=== PATIENT | male | born 1950 | race Caucasian/White ===

== ENCOUNTER → 2023-02-05 | Outpatient (CLI) | payer MEDICARE, OTHER, SELFPAY ==
--- NOTE | 2023-02-05 08:05 | CT_ITS ---
PROCEDURE: CT LEFT KNEE WITHOUT CONTRAST REASON FOR EXAM: Male, 72 years old. Preoperative planning for the [employer] Robotic knee surgery. Knee pain. TECHNIQUE: Transaxial CT of the hip, knee and ankle were obtained. Coronal and sagittal reconstruction images of the knee were provided. Individualized dose optimization techniques were used for this CT. COMPARISON: None. FINDINGS: Standard protocol for the preoperative planning for the [employer] robotic knee surgery was performed. Osteopenia. Moderate arthrosis of the left hip. Moderate tricompartmental arthrosis of the knee. Mild arthrosis of the tibiotalar, subtalar and talonavicular joints. Inferior calcaneal spur. CT/Extremity Lower without Contra IMPRESSION: Preoperative [employer] Robotic knee surgical CT evaluation with findings as described above. Electronically Signed: Fortino Monae, at 9:29 EDT ,
== END | disposition home or self-care (01) ==
LOC: CT 07:52
PROVIDERS: PCP Family Medicine Geriatric Medicine; Referring Provider Orthopaedic Surgery; Visit Provider Orthopaedic Surgery
DX: M17.0 Bilateral primary osteoarthritis of knee (principal)
CPT/HCPCS: 73700

== ENCOUNTER → 2023-03-19 | Outpatient (CLI) | payer MEDICARE, OTHER, SELFPAY ==
--- NOTE | 2023-03-19 14:40 | RAD_ITS ---
STUDY: X-RAY CHEST REASON FOR EXAM: Male, 72 years old. Preoperative evaluation. No chest complaints. TECHNIQUE: COMPARISON: None. FINDINGS: Hyperinflation There is no demonstrated pleural abnormality. Cardiomegaly. Normal mediastinum and staci. Normal visualized pulmonary arteries. Aortic tortuosity with calcification. Mild thoracic spondylosis. Normal visualized ribs, clavicles, and shoulders. No abnormality of the visualized soft tissue structures of the upper abdomen. RAD/Chest PA and Lateral IMPRESSION: Cardiomegaly with hyperinflation and no acute abnormality. Electronically Signed: Fortino Monae MD at 12:41 EDT ,
[2023-03-19 15:41] LABS: Absolute Lymphocyte Count 1.27 X10^3/uL (0.83-4.51); Absolute Neutrophil Count 3.1 X10^3/uL (2.0-7.7); Basophil# 0.03 X10^3/uL; Basophil% 0.6 % (0-1); Eosinophil# 0.11 X10^3/uL; Eosinophils% 2.2 % (0-5); Hematocrit 46.4 % (40-54); Lymphocyte # 1.27 X10^3/ul (0.83-4.51); Lymphocyte % 25.1 % (19-41); Mean Corp Hgb Conc 32.3 g/dL (32-36); Mean Corpuscular Volume 86.6 fL (80-94); Mean Platelet Vol. 13.6 fl (6.2-12.0); Monocyte# 0.49 X10^3/uL; Monocyte% 9.7 % (0-10); NRBC Flagged by Analyzer 0 % (0-5); Neutrophil # 3.14 X10^3/uL (2.7-7.7); Platelet Count 138 K/mm3 (150-450); RBC Distribution Width CV 13.3 % (11.6-14.6); RBC Distribution Width SD 41.9 fl (35.1-43.9); Red Blood Count 5.36 M/mm3 (4.6-6.2); White Blood Count 5.1 K/mm3 (4.4-11.0)
[2023-03-19 16:13] LABS: Anion Gap 4 (5-15); BUN 24 mg/dL (7-18); BUN/Creat Ratio 22.6 RATIO (10-20); Calcium,Total 8.9 mg/dL (8.5-10.1); Chloride 108 mmol/L (98-107); Creatinine, Serum 1.06 mg/dL (0.70-1.30); EST Glomerular Filtration Rate 73 mL/min (>60); Est Glom Filt Rate - Afr Amer 89 mL/min (>60); Glucose 81 mg/dL (74-106); Potassium 4.4 mmol/L (3.5-5.1); Sodium Level 138 mmol/L (136-145)
== END | disposition home or self-care (01) ==
PROVIDERS: PCP Family Medicine Geriatric Medicine; Referring Provider Physician Assistant; Visit Provider Physician Assistant
DX: Z01.818 Encounter for other preprocedural examination (principal); Z01.810 Encounter for preprocedural cardiovascular examination; Z01.811 Encounter for preprocedural respiratory examination
CPT/HCPCS: 36415; 71046; 80048; 85025

== ENCOUNTER → 2023-03-26 | Outpatient (CLI) | payer MEDICARE, OTHER, SELFPAY ==
--- NOTE | 2023-03-26 | KNEE_PTH ---
PATIENT: SIGRID YOUNG LOC: [facility] U#:[id number] AGE/SX: 72/M ROOM: RE03/26/[address]: Dr. Gama Garza MD : 1950 BED: DIS: 03/26/2023 SPEC #: [id number] RECD: 03/26/23 14:52 STATUS: LEONARDO REYifan #: [id number] EMETERIO: 03/26/23 00:[address]: Gama Garza DEPT: SURGICAL PATHOLOGY RECD BY: Kristel Maravilla ENTERED: 03/27/23 09:38 SP TYPE: TOTAL KNEE OTHR DR: Dr. Gama Monroe MD [facility] Tissues: Knee, NOS Procedures: Decalcification bone/plaque Surgery Specimen Level IV HEADER OPERATION: Left total knee arthroplasty PRE-OP DIAGNOSIS: Osteoarthritis left knee with varus deformity TISSUE SUBMITTED: Left knee bone MICROSCOPIC DIAGNOSIS Bone and tissue of left knee, total knee resection: Severe degenerative joint disease. 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 AM:gilbert 03/29/2023 MICROSCOPIC DESCRIPTION Slides are reviewed. GROSS DESCRIPTION Received is one container designated bone and soft tissue left knee. The specimen consists of multiple fragments of broderick-yellow bone measuring in aggregate 17.0 x 14.0 x 2.0 cm. Also in the specimen container are multiple fragments of yellow-white soft tissue measuring in aggregate 8.0 x 5.0 x 2.0 cm. A number of bony fragments contain articular surfaces consistent with tibial plateau and femoral condyle and displaying prominent osteophyte formation, eburnation and bone erosion. [employer] Apprentice sections are submitted in two cassettes as follows: 1 - soft tissue, 2 - bone after decalcification. / AM:gilbert 03/27/2023 TC:5 [facility]: [id number], [id number]
== END | disposition home or self-care (01) ==
LOC: LABSPEC 15:02
PROVIDERS: PCP Family Medicine Geriatric Medicine; Referring Provider Orthopaedic Surgery; Visit Provider Orthopaedic Surgery
DX: M17.12 Unilateral primary osteoarthritis, left knee (principal); M21.162 Varus deformity, not elsewhere classified, left knee
CPT/HCPCS: 88305; 88311

== ENCOUNTER → 2023-09-14 | Outpatient (CLI) | payer MEDICARE, OTHER, SELFPAY | END | disposition home or self-care (01) | LOC: CT 14:42 | PROVIDERS: PCP Family Medicine Geriatric Medicine; Referring Provider Orthopaedic Surgery; Visit Provider Orthopaedic Surgery | DX: Z96.652 Presence of left artificial knee joint (principal) ==

== ENCOUNTER → 2023-10-23 | Outpatient (CLI) | payer MEDICARE, OTHER, SELFPAY ==
--- NOTE | 2023-10-23 12:50 | CT_ITS ---
CT RIGHT LOWER EXTREMITY WITH 3-D IMAGING CLINICAL INDICATION: PRE OP WASC. Preoperative MAKOPLASTY TECHNIQUE: Axial CT images of the RIGHT lower extremity was performed without IV contrast material. Coronal and sagittal reformats were provided. RADIATION DOSAGE (If Supplied By Facility): CTDIvol = ( 18.76 ) mGy, DLP = ( 1082.06 ) mGycm COMPARISON: No relevant prior comparison study available FINDINGS: Bones: Imaging of the right hip was obtained. Mild to moderate degree of joint space narrowing. There is evidence of a degenerative spur formation along the superior lateral aspect of the right femoral head. Imaging of the right knee joint was obtained. Moderate degree of joint space narrowing involving the medial compartment of the knee joint with degenerative spur formation along the medial femoral condyle. Imaging of the right ankle was obtained. No significant abnormality is seen. Soft Tissues: Small knee joint effusion. The superficial soft tissues are unremarkable without evidence of edema, hematoma, or foreign body. CT/Extremity Lower without Contra IMPRESSION: Moderate degree of joint space narrowing involving the right hip joint as well as the medial compartment of the right knee joint as described. Small knee joint effusion. Electronically Signed: Fabricio Morrison MD at 13:33 EST ,
--- OUTSIDE RECORDS SUMMARY | 2023-10-23 12:59 | XMS RPT_ITS | CCD ---
Author Name Unknown Address [address] [facility] [address] [place] [address] Organization [facility] Care Team Providers Care Jar Capper Name Role Phone PA VALLEJO Unavailable Unavailable RADHA BRIAN Unavailable Unavailable JOSE MARIA MEYER Unavailable Unavailable JOSE MARIA MEYER Unavailable Unavailable *SELF, REFERRED Unavailable Unavailable UNKNOWN, PCP Unavailable Unavailable Radha Brian Primary Care Provider Radha Brian Primary Care Provider RADHA BRIAN MD Primary Care Physician SNEHAL HERNANDEZ., DR. GARCIA Primary Care Unavailable RADHA MA MD Referring Unavailable RADHA MA MD Attending Unavailable Radha Brian MD Primary Care Provider Radha Brian MD Primary Care Provider RADHA BRIAN Primary Care Unavailable DUNG PHILLIPS Attending UnavailLAUREEN Mendez Attending Unavailable LAUREEN CHAPMAN Referring Unavailable RADHA BRIAN Primary Care Unavailable LISSA OLEA Attending Unavailable RADHA BRIAN Primary Care Unavailable LAUREEN CHAPMAN Attending Unavailable RADHA BRIAN Primary Care Unavailable Medications Current Medications Medication Drug Class(es) Dates Sig (Normalized) Sig (Original) acetaminophen 500 mg oral tablet (3 sources) acetaminophen (Tylenol Extra Strength) 500 MG tablet 2 tab Q 8 hours 0 Active apixaban 5 mg oral tablet (11 sources) Factor Xa Inhibitor Start: 11-07-2022 End: 08-08-2023 take 1 tablet by mouth twice daily Eliquis 5 MG tablet Take 1 tablet (5 mg) by mouth 2 times daily. 180 tablet 3 08/08/2023 Active Completed/Discontinued Medications Medication Drug Class(es) Dates Sig (Normalized) Sig (Original) 10 ml lidocaine hydrochloride 10 mg/ml injection (1 source) Antiarrhythmic, Amide Local Anesthetic Start: 05-03-2020 End: 05-03-2020 lidocaine PF 1 % injection 5 mL Problems Active Problems Problem Classification Problem Date Documented Date Episodic/Chronic Cardiac dysrhythmias (19 sources) Paroxysmal atrial fibrillation; Translations: [Paroxysmal atrial fibrillation] Onset: 01-02-2020 01-02-2020 Chronic Coagulation and hemorrhagic disorders (7 sources) Thrombocytopenic disorder; Translations: [Thrombocytopenia, unspecified] Onset: 04-05-2017 07-23-2022 Chronic Essential hypertension (5 sources) Essential hypertension; Translations: [Essential (primary) hypertension] Onset: 02-05-2023 Chronic Heart valve disorders (5 sources) Aortic stenosis, non-rheumatic ; Translations: [Nonrheumatic aortic (valve) stenosis] Onset: 08-18-2023 08-08-2023 Chronic Osteoarthritis (1 source) Osteoarthritis of knee; Translations: [Bilateral primary osteoarthritis of knee] Chronic Other lower respiratory disease (5 sources) Dyspnea; Translations: [Shortness of breath] Onset: 08-18-2023 08-08-2023 Episodic Other lower respiratory disease (1 source) Shortness of breath; Translations: [Shortness of breath] Onset: 08-18-2023 Episodic Unclassified (1 source) Longstanding persistent atrial fibrillation; Translations: [Longstanding persistent atrial fibrillation (HCC)] Onset: 03-28-2023 Past or Other Problems Problem Classification Problem Date Documented Da te Episodic/Chronic Open wounds of extremities (1 source) Laceration of index finger; Translations: [Laceration of right index finger without foreign body without damage to nail, initial encounter] Episodic Unclassified (4 sources) Encounter for screening for malignant neoplasm of colon; Translations: [Platelet count below reference range] Onset: 04-05-2017 04-05-2017 Episodic Results Test Name Value Interpretation Reference Range Facil ity Vital Signs Date Time Vital Sign Value Performing Clinician Duran sanchez 08-18-2023 11:06-0500 Body height 175.3 cm Laureen Chapman PA-C Work Phone: [facility] 08-18-2023 11:06-0500 Body mass index (BMI) [Ratio] 24.96 kg/m2 Laureen Chapman PA-C Work Phone: [facility] 08-18-2023 11:06-0500 Body weight 76.66 kg Laureen Chapman PA-C Work Phone: [facility] 08-08-2023 13:37-0400 Body height 176.5 cm Laureen Chapman PA-C Work Phone: [facility] 08-08-2023 13:37-0400 Body mass index (BMI) [Ratio] 24.7 kg/m2 Laureen Chapman PA-C Work Phone: [facility] 08-08-2023 13:37-0400 Body weight 76.97 kg Laureen Chapman PA-C Work Phone: [facility] 08-08-2023 13:37-0400 Diastolic blood pressure 50 mm[Hg] Laureen Chapman PA-C Work Phone: [facility] 08-08-2023 13:37-0400 Heart rate 97 /min Laureen Chapman PA-C Work Phone: [facility] 08-08-2023 13:37-0400 SaO2% (BldA) [Mass fraction] 97 % Laureen Chapman PA-C Work Phone: [facility] 08-08-2023 13:37-0400 Systolic blood pressure 102 mm[Hg] Laureen Chapman PA-C Work Phone: [facility] 02-05-2023 15:40-0400 Body height 180.3 cm Lissa Olea MD Work Phone: [facility] 02-05-2023 15:40-0400 Body mass index (BMI) [Ratio] 23.51 kg/m2 Lissa Olea MD Work Phone: [facility] 02-05-2023 15:40-0400 Body weight 76.48 kg Lissa Olea MD Work Phone: [facility] 02-05-2023 15:40-0400 Diastolic blood pressure 68 mm[Hg] Lissa Olea MD Work Phone: [facility] 02-05-2023 15:40-0400 Heart rate 46 /min Lissa Olea MD Work Phone: [facility] 02-05-2023 15:40-0400 SaO2% (BldA) [Mass fraction] 96 % Lissa Olea MD Work Phone: [facility] 02-05-2023 15:40-0400 Systolic blood pressure 128 mm[Hg] Lissa Olea MD Work Phone: [facility] 05-03-2020 16:05-0400 BP Diastolic 72 mm[Hg] [place], [place] 05-03-2020 16:05-0400 BP Systolic 156 mm[Hg] [place] 05-03-2020 16:05-0400 Pulse (Heart Rate) 62 /min [place], [place] 05-03-2020 16:05-0400 Pulse Oximetry 100 % [place] 05-03-2020 16:05-0400 Respiratory Rate 16 /min [place] 05-03-2020 14:50-0400 BMI (Body Mass Index) 23.71 kg/m2 [place], [place] 05-03-2020 14:50-0400 Body Temperature 97.2 [degF] [place], [place] 05-03-2020 14:50-0400 Body weight 77.11 kg [place] Encounters Encounter Date Encounter Type Care Provider Facility Start: 08-18-2023 End: 08-19-2023 ambulatory LAUREEN MG [facility] Start: 08-18-2023 End: 08-18-2023 Subsequent hospital visit by physician Laureen Chapman PA-C Work Phone: [facility] Non-Invasive Cardiology Procedures Date Procedure Procedure Detail Performing Clinician Start: 08-18-2023 Echo tthrc r-t 2d w/wom-mode compl spec&colr d Laureen Chapman PA-C Work Phone: Start: 08-08-2023 Ecg routine ecg w/le ast 12 lds trcg only w/o i&r Lissa Olea MD Work Phone: Start: 02-05-2023 Ecg routine ecg w/le ast 12 lds w/i&r Lissa Olea MD Work Phone: Start: 10-19-2020 Echo tthrc r-t 2d w/wom-mode compl spec&colr d Laureen Chapman Work Phone: Start: 05-03-2020 LACERATION REPAIR Belen Jesus Stone Work Phone: Start: 02-02-2020 Lipid 1996 panel - S noreen or Plasma Lissa Olea MD Work Phone: Start: 05-22-2019 Echo tthrc r-t 2d w/wom-mode compl spec&colr d Laureen Chapman Work Phone: Plan of Treatment Date Care Activity Detail Author Start: 11-02-2026 DTaP/Tdap/Td vaccine (2 - Td) DTaP/Tdap/Td vaccine (2 - Td) [place] Start: 11-02-2026 DTaP/Tdap/Td Vaccines (2 - Td or Tdap) DTaP/Tdap/Td Vaccines (2 - Td or Tdap) [facility] Start: 02-01-2025 Lipid panel Lipid Panel [facility] Start: 08-18-2024 Echocardiography Echocardiogram [facility] Start: 08-08-2024 Creatinine measurement Creatinine Level [facility] Start: 08-08-2024 Potassium measurement Potassium Level [facility] Start: 08-18-2023 End: 08-18-2023 Patient encounter procedure 08/18/2023 10:00 AM EST Appointment [facility] Non-Invasive Cardiology [address] [place] [phone] [facility] Non-Invasive Cardiology Start: 08-08-2023 End: 08-08-2024 Basic metabolic 1998 panel - Serum or Plasma Basic metabolic panel Lab Routine Paroxysmal atrial fibrillation (CMS/HCC) (HCC) Nonrheumatic aortic valve stenosis Shortness of breath Expected: 08/08/2023 (Approximate), Expires: 08/08/2024 [facility] Payers Date Payer Category Payer Unknown [employer] [place] [id number] 2021-Present [address] [place] [address] Supplement [id number] 2018 Unknown [employer] M [employer] [address] xxxxxxxxxxxx 2018-Present [phone] [address] [place] [address] xxxxxxxxxxxx [id number] 2018 Unknown [id number] 2018 Unknown [employer] [address] [id number] 2018-Present [phone] [address] [place] [address] [id number] 2017 Medicare MEDICARE MEDICAR E PART A AND B xxxxxxxxxxx 2017-Present [phone] [place] [address] xxxxxxxxxxx [id number] 2017 Medicare MEDICARE MEDICAR E PART A AND B [id number] 2017-Present [phone] [place] [address] [id number] 2017 Medicare [id number] 2017 Medicare MEDICARE MEDICAR E PART A AND B [id number] 2017-Present [address] [place] [address] Medicare [id number] 1950 Unknown [id number] Unknown [id number] Social History Date Type Detail Facility Start: 05-05-2019 End: 05-03-2020 Tobacco smoking status NHIS Never smoker [facility] Start: 05-05-2019 End: 08-08-2023 [facility] [place] [place] Start: 05-05-2019 Alcohol Comment Thur, some Fri and Sun, 6 beers each time min. [facility] [employer] [place], [place] Sex Assigned At Not on file [place], [place] Start: 05-03-2020 Tobacco use and exposure [facility] used [facility] [place] [place] Start: 05-03-2020 End: 09-26-2022 Alcohol intake Current drinker of alcohol (finding) [facility] [place] Start: 05-27-2019 Alcohol Comment 3 beers a day on thur, fri, sun [place], [place] Exposure to SARS-CoV -2 (event) Not sure [place] Tobacco smoking status No Smokin g Status Entered [facility] Start: 1950 Sex Assigned At Male A [facility] Start: 09-26-2022 End: 08-08-2023 History of Social function [facility] Start: 02-04-2023 Gender identity Identifies as male gender (finding) [facility] Start: 08-08-2023 Alcohol intake Ex-drinker (finding) [facility] Functional Status Date Assessment Result Facility 03-30-2022 Functional Status Objective: Cardiovascular screen: BP: 130/78 HR: 54 BPM O2 sat: 97% Gait: genu varum noted bilaterally Observation in standing: Genu Varum Joint Mobility: min loss extension Effusion: no palpable or observed [facility] 02-05-2023 to 08-08-2023 Laureen Chapman PA-C - 08/08/2023 1:30 PM EDTPatient InstructionsTelephone Encounter - Yari Craig - 03/16/2023 12:07 PM EDTTelephone Encounter - Yari Craig - 02/06/2023 8:30 AM EDT Note Date & Type Note Facility 08-08-2023 History of Presen t illness Narrative [facility] Office Note DATE of SERVICE: 08/08/23 TIME of SERVICE: 2:12 PM Chief Complaint: Chief Complaint Patient presents with 6 Month Follow-up History of Present Illness: Kurt Matthews is a 72 y.o. male with a history of hypertension, thrombocytopenia, paroxysmal atrial fibrillation, aortic stenosis and bradycardia who presents to the office today for cardiac reassessment. Currently the patient reports since he was last evaluated in our office he underwent a knee replacement. He reports postoperatively he developed atrial fibrillation with rapid ventricular response. He states normally his heart rate is not as fast if he has paroxysms of atrial fibrillation. He subsequently was in the emergency room at [facility] 03/2023. He spontaneously converted back to a sinus mechanism and was restarted on his OAC/Eliquis post knee surgery. He was then discharged home. The patient reports on average she experiences maybe 1 episode a month. They typically last a few hours however he admits they have been lasting longer lately. He states his episodes are now lasting approximately 9 hours. He states his current episode is the longest episode he has had. It started at 6:30 PM last night. This is his first episode in the last month. He states however he is tolerating it well aside from the initial palpitations. Specifically he denies chest pain, shortness of breath with the atrial fibrillation, near-syncope or syncope. He states he has not missed any doses of his Eliquis in the last 4 weeks and denies any bleeding problems. He is not drinking alcohol or taking [id number] supplements. He drinks an occasional soda and ice tea but no daily caffeine intake. Past Medical History: Past Medical History: Diagnosis Date Hypertension Paroxysmal atrial fibrillation (HCC) Thrombocytopenia (HCC) Past Surgical History Past Surgical History: Procedure Laterality Date COLONOSCOPY 01/17/2005 TONSILLECTOMY (HISTORICAL) TYMPANOSTOMY TUBE PLACEMENT FamilyHistory Family History Problem Relation Name Age of Onset No Known Problems Sister No Known Problems Brother Cancer Father unknown No Known Problems Son No Known Problems Brother No Known Problems Daughter Cancer Mother unknown Social History Social History Tobacco Use Smoking status: Never Smokeless tobacco: Never Substance Use Topics Alcohol use: Not Currently Drug use: No Comment: caffeine use: decaf coffe and 1 can of soda a day, 1 glass of sweet tea a week Medications: Current Outpatient Medications: acetaminophen (Tylenol Extra Strength) 500 MG tablet, 2 tab Q 8 hours, Disp: , Rfl: lisinopril 10 MG tablet, Take 10 mg by mouth 2 times daily., Disp: , Rfl: metoprolol tartrate (Lopressor) 50 MG tablet, TAKE 1/2 TABLET BY MOUTH TWICE A DAY ORALLY TWICE A DAY 90 DAYS, Disp: , Rfl: Eliquis 5 MG tablet, Take 1 tablet (5 mg) by mouth 2 times daily., Disp: 180 tablet, Rfl: 3 Review of Systems: Review of Systems Constitutional: Negative for chills and fever. Respiratory: Positive for shortness of breath. Negative for cough. Cardiovascular: Positive for palpitations. Negative for chest pain and leg swelling. Gastrointestinal: Negative for abdominal pain, blood in stool and vomiting. Genitourinary: Negative for hematuria. Neurological: Negative for dizziness and syncope. Physical Examination: Vitals: Vitals: 08/08/23 1337 BP: 102/50 BP Location: Left arm Patient Position: Sitting BP Cuff Size: Adult Pulse: 97 SpO2: 97% Weight: 169 lb 11.2 oz (77 kg) Height: 5' 9.5 (1.765 m) Body mass index is 24.7 kg/m . Physical Exam Constitutional: Appearance: Normal appearance. HENT: Head: Normocephalic. Eyes: General: No scleral icterus. Right eye: No discharge. Left eye: No discharge. Cardiovascular: Rate and Rhythm: Normal rate. Rhythm irregularly irregular. Pulses: Normal pulses. Heart sounds: Murmur heard. Systolic murmur is present with a grade of 2/6. Pulmonary: Effort: Pulmonary effort is normal. Breath sounds: Normal breath sounds. Abdominal: General: Abdomen is flat. Palpations: Abdomen is soft. Musculoskeletal: General: Normal range of motion. Cervical back: Normal range of motion. Skin: General: Skin is warm and dry. Capillary Refill: Capillary refill takes less than 2 seconds. Neurological: Mental Status: He is alert and oriented to person, place, and time. Psychiatric: Mood and Affect: Mood normal. Laboratory Tests: No results found for: WBC , HGB , HCT , MCV , PLT Lab Results Component Value Date GLUCOSE 102 (H) 02/02/2020 CALCIUM 9.3 02/02/2020 NA 141 02/02/2020 K 4.6 02/02/2020 CO2 26 02/02/2020 CL 105 02/02/2020 BUN 26 (H) 02/02/2020 CREATININE 1.02 02/02/2020 No results found for: HGBA1C Lab Results Component Value Date CHOL 118 02/02/2020 Lab Results Component Value Date TRIG 135 02/02/2020 Lab Results Component Value Date HDL 40 02/02/2020 No results found for: LDLCALC No results found for: VLDL Lab Results Component Value Date CHOLHDLRATIO 3 02/02/2020 Cardiac Tests: ECG: EKG in the office today shows atrial fibrillation with a heart rate of 97 bpm Last Echo 10/19/20: SUMMARY: 1. Study data: Atrial fibrillation rates 80-110 beats a minute 2. Left ventricle: Systolic function is normal by visual assessment. The estimated ejection fraction is 60%. There are no regional wall motion abnormalities. 3. Right ventricle: The cavity size is normal. Systolic function is normal. Right ventricular systolic pressure is within the normal range. 4. Aortic valve: Probably trileaflet; moderately calcified leaflets. There is moderate stenosis. There is mild, 1+ regurgitation. The mean systolic gradient is 11 mm Hg. The peak systolic gradient is 22 mm Hg. Dimensionless index: 0.45. The valve area by the velocity-time integral method is 1.4 cm^2. Assessment and Plan: Paroxysmal, nonvalvular atrial fibrillation-the patient's episodes have been increasing in length. He is currently in atrial fibrillation which he reports started at 6:30 PM last night. He is appropriately anticoagulated with Eliquis and reports he has not missed any doses in the last 4 weeks. He is to obtain a CBC, BMP, magnesium and TSH level today. He is to call the office in the morning if he has not spontaneously converted back to a sinus mechanism on his own. If he remains in atrial fibrillation, will plan on proceeding with cardioversion. He is to continue on his current rate control with metoprolol. Aortic stenosis-moderate per most recent echocardiogram 2020-the patient does report shortness of breath with heavy exertion and has had increasing episodes of atrial fibrillation. He subsequently is to undergo a follow-up echocardiogram. Hypertension-controlled. Dyslipidemia-history of intolerance to statin therapy. History of bradycardia-stable. -Further recommendations pending upcoming cardiac testing. In the absence of further cardiac complaints and/or abnormalities on the patient's upcoming cardiac testing, the patient is return for cardiac reassessment in 3 months. documented in this encounter [facility] 08-08-2023 Instructions Laureen Chapman PA-C - 08/08/2023 1:30 PM EDT -don't eat or drink after midnight and call Laureen in the morning at [phone] at 8 am to let us know if you are back in rhythm -blood test today -echocardiogram documented in this encounter [facility] 03-16-2023 Telephone encount er Note Fadia pt seen today at [facility] ED for AF RVR. Converted spontaneously. Please schedule follow up with myself or Laureen. Thanks Lissa Olea MD [facility] 03/28/23 4:01 PM Per call from Juani at [facility], I faxed last office note and ekg to [phone] [facility] 03-16-2023 Miscellaneous Notes Formattin g of this note might be different from the original. Per call from Juani at [facility], I faxed last office note and ekg to [phone] documented in this encounter [facility] 03-16-2023 Miscellaneous Notes Formattin g of this note might be different from the original. Fadia pt seen today at [facility] ED for AF RVR. Converted spontaneously. Please schedule follow up with myself or Laureen. Thanks Lissa Olea MD [facility] 03/28/23 4:01 PM Per call from Juani at [facility], I faxed last office note and ekg to [phone] documented in this encounter [facility] 02-06-2023 Telephone encount er Note Per Dr Olea, I faxed yesterdays note to [facility] for left total knee surgery 03-19-[address] Radha Ma fax [phone] [facility] 02-06-2023 Miscellaneous Notes Formattin g of this note might be different from the original. Per Dr Olea, I faxed yesterdays note to [facility] for left total knee surgery 03-19-[address] Radha Ma fax [phone] documented in this encounter [facility] 02-05-2023 History of Presen t illness Narrative [facility] Office Note DATE of SERVICE: 02/05/23 TIME of SERVICE: 3:45 PM Chief Complaint: Chief Complaint Patient presents with Cardiac Clearance For L TKA History of Present Illness: Kurt Matthews is a 72 y.o. male with a known history of hypertension, thrombocytopenia, paroxysmal atrial fibrillation who presents to the office today for cardiac follow-up and evaluation. He has had two brief episodes of AF since his last visit which have both spontaneously converted to NSR. He is in need of Bilateral TKA. He has no sx of cp palpitation, and describes sob w high levels of effort or exertion. Past Medical History: Past Medical History: Diagnosis Date Hypertension Paroxysmal atrial fibrillation (CMS/HCC) (HCC) Thrombocytopenia (HCC) Past Surgical History Past Surgical History: Procedure Laterality Date COLONOSCOPY 01/17/2005 TONSILLECTOMY (HISTORICAL) TYMPANOSTOMY TUBE PLACEMENT FamilyHistory Family History Problem Relation Name Age of Onset No Known Problems Sister No Known Problems Brother Cancer Father unknown No Known Problems Son No Known Problems Brother No Known Problems Daughter Cancer Mother unknown Social History Social History Tobacco Use Smoking status: Never Smokeless tobacco: Never Substance Use Topics Alcohol use: Yes Drug use: No Medications: Current Outpatient Medications: Eliquis 5 MG tablet, Take 5 mg by mouth 2 times daily., Disp: , Rfl: lisinopril 10 MG tablet, Take 10 mg by mouth 2 times daily., Disp: , Rfl: metoprolol tartrate (Lopressor) 50 MG tablet, TAKE 1/2 TABLET BY MOUTH TWICE A DAY ORALLY TWICE A DAY 90 DAYS, Disp: , Rfl: Review of Systems: Review of Systems Constitutional: Negative for diaphoresis. HENT: Negative for nosebleeds. Respiratory: Negative for cough, shortness of breath (with over exertion) and wheezing. Cardiovascular: Positive for palpitations. Negative for chest pain and leg swelling. Gastrointestinal: Negative for abdominal pain, blood in stool, nausea and vomiting. Genitourinary: Negative for hematuria. Musculoskeletal: Arthralgias: B knee. Neurological: Negative for dizziness, syncope and light-headedness. Hematological: Does not bruise/bleed easily. Psychiatric/Behavioral: Negative for dysphoric mood and suicidal ideas. Physical Examination: Vitals: Vitals: 02/05/23 1540 BP: 128/68 BP Location: Right arm Patient Position: Sitting BP Cuff Size: Large adult Pulse: (!) 46 SpO2: 96% Weight: 168 lb 9.6 oz (76.5 kg) Height: 5' 11 (1.803 m) Body mass index is 23.51 kg/m . Physical Exam Constitutional: General: He is not in acute distress. Appearance: He is not diaphoretic. HENT: Head: Normocephalic. Nose: Nose normal. Mouth/Throat: Mouth: Mucous membranes are moist. Pharynx: No oropharyngeal exudate. Eyes: General: No scleral icterus. Right eye: No discharge. Left eye: No discharge. Neck: Thyroid: No thyromegaly. Vascular: No carotid bruit or JVD. Cardiovascular: Rate and Rhythm: Normal rate and regular rhythm. Pulses: Normal pulses. Heart sounds: Murmur (grade III murmur) heard. Pulmonary: Effort: Pulmonary effort is normal. Breath sounds: Normal breath sounds. Abdominal: General: Bowel sounds are normal. There is no distension. Palpations: There is no hepatomegaly. Tenderness: There is no abdominal tenderness. Musculoskeletal: General: Normal range of motion. Cervical back: Normal range of motion. Right lower leg: No edema. Left lower leg: No edema. Skin: General: Skin is warm and dry. Neurological: Mental Status: He is oriented to person, place, and time. Psychiatric: Mood and Affect: Mood normal. Behavior: Behavior normal. Laboratory Tests: Lab Results Component Value Date GLUCOSE 102 (H) 02/02/2020 CALCIUM 9.3 02/02/2020 NA 141 02/02/2020 K 4.6 02/02/2020 CO2 26 02/02/2020 CL 105 02/02/2020 BUN 26 (H) 02/02/2020 CREATININE 1.02 02/02/2020 Lab Results Component Value Date CHOL 118 02/02/2020 Lab Results Component Value Date TRIG 135 02/02/2020 Lab Results Component Value Date HDL 40 02/02/2020 Lab Results Component Value Date CHOLHDLRATIO 3 02/02/2020 Cardiac Tests: ECG: NSR normal ECG ECHO: 10/19/20 1. Study data: Atrial fibrillation rates 80-110 beats a minute 2. Left ventricle: Systolic function is normal by visual assessment. The estimated ejection fraction is 60%. There are no regional wall motion abnormalities. 3. Right ventricle: The cavity size is normal. Systolic function is normal. Right ventricular systolic pressure is within the normal range. 4. Aortic valve: Probably trileaflet; moderately calcified leaflets. There is moderate stenosis. There is mild, 1+ regurgitation. The mean systolic gradient is 11 mm Hg. The peak systolic gradient is 22 mm Hg. Dimensionless index: 0.45. The valve area by the velocity-time integral method is 1.4 cm^2. Assessment and Plan: Bradycardia- improved on the lower dose of beta cindy therapy. The patient is asymptomatic and therefore was advised to continue his present dosing of beta cindy therapy. Paroxysmal atrial fibrillation-Will continue rate control and anticoagulation. Continue current Rx Aortic Stenosis- mild per recent echocardiogram 2020 with an ejection fraction of 60%-the patient is currently asymptomatic. He was advised we would recommend obtaining a follow-up echocardiogram in one year. Hypertension-controlled following the recent adjustment of his medication. Dyslipidemia. Pt statin intolerant Pre-op evaluation. The pt appears to be at low risk of cardiovascular morbidity or mortality from the planned TKA. I have advised that he hold Eliquis 48 hours prior to OR (or longer if the surgeon directs) and resume at the direction of the surgeon. documented in this encounter [facility] 02-05-2023 Instructions Lissa Olea MD - 02/05/2023 3:15 PM EDT Please call our office at [phone] if you have questions or if you are having worsening symptoms of chest pain, pressure, or heaviness, aching, tightness or discomfort, worsening shortness of breath, palpitations, lightheadedness, or loss of consciousness. Please seek emergency care or call 911 if symptoms are severe. Continue all other medications as prescribed. If you need medication refills, please call our office during business hours (M-F 8a-4:30p) documented in this encounter [facility] Evaluation + Plan note No data available for this section [facility] Diagnosis Paroxysmal atrial fibrillation (HCC)- Primary Atrial fibrillation Nonrheumatic aortic valve stenosis Shortness of breath Essential hypertension Unspecified essential hypertension [facility] Diagnosis Paroxysmal atrial fibrillation (HCC) Atrial fibrillation Nonrheumatic aortic valve stenosis Shortness of breath [facility] No data available for this section [facility] Progress note No data available for this section [facility] Summary Purpose Family History No Family History Records FoundNo Family History Records FoundNo Family History Records FoundNo Family History Records FoundNo Family History Records FoundNo Family History Records FoundNo Family History Records Found Advance Directives No Advanced Directives Records FoundDocuments on File Type Date Recorded Patient [place] Expl anation Advance Directives and Living Will Power of Tool Design Engineer Documents on File Type Date Recorded Patient [place] Expl anation ACP-Advance Directive ACP-Power of Tool Design Engineer Documents on File Type Date Recorded Patient [place] Expl anation Advance Directives and Living Will Power of Tool Design Engineer Reason for Referral Status Reason Specialty Diagnoses / Procedures Referre d By Contact Referred To Contact Closed Cardiology Diagnoses Essential hypertension Paroxysmal atrial fibrillation (HCC) Shortness of breath Procedures ECHO Complete 2D W Doppler W Color Laureen Chapman PA-C [address] [place] [address] Specialty Diagnoses / Procedures Referred By Contac t Referred To Contact Cardiology Diagnoses Paroxysmal atrial fibrillation (HCC) Nonrheumatic aortic valve stenosis Shortness of breath Procedures Transthoracic echocardiogram (TTE) complete with contrast, bubble, strain, and 3D PRN IN ECHO TTHRC R-T 2D W/WOM-MODE COMPL SPEC&COLR D IN TTE W OR WO FOL WCON,DOPPLER Laureen Chapman PA-C [address] [place] [address] Referral ID Status Reason Start Date Expiration Date V isits Requested Visits Authorized [id number] Pending Review 08/08/2023 08/07/2024 1 1 Referral ID Status Reason Start Date Expiration Date Visits Re quested Visits Authorized [id number] Closed 08/08/2023 08/07/2024 1 1 Assessments Diagnosis Essential hypertension Unspecified essential hypertension Paroxysmal atrial fibrillation (HCC) Atrial fibrillation Shortness of breath Diagnosis Laceration of right index finger without foreign body without damage to nail, initial encounter Discharge Instructions * Attachments The following attachments cannot be sent through Care Everywhere. * Lacerations: Stitches ([place]) documented in this encounter Additional Source Comments (unrecognized sect ion and content) No Status Records FoundNo Status Records FoundNo Status Records FoundNo Status Records FoundNo Status Records FoundNo Status Records FoundNo Status Records Found INFORMATION SOURCE (unrecogn ized section and content) DATE CREATED AUTHOR AUTHOR'S ORGANIZ ATION 04/05/2018 [facility] DATE CREATED AUTHOR AUTHOR'S ORGANIZ ATION 05/28/2019 [facility] DATE CREATED AUTHOR AUTHOR'S ORGANIZ ATION 10/20/2020 [facility] DATE CREATED AUTHOR AUTHOR'S ORGANIZ ATION 08/31/2022 [facility] ([place] DATE CREATED AUTHOR AUTHOR'S ORGANIZ ATION 04/12/2023 [facility] DATE CREATED AUTHOR AUTHOR'S ORGANIZ ATION 08/19/2023 [facility] Reason for Visit (unrecogniz ed section and content) Reason Comments Cardiac Clearance For L TKA Reason Onset Date Comments Cardiac Clearance 02/06/2023 Reason Onset Date Comments OTHER 03/16/2023 Reason Comments 6 Month Follow-up Specialty Diagnoses / Procedures Referred By Contac t Referred To Contact Cardiology Diagnoses Paroxysmal atrial fibrillation (HCC) Nonrheumatic aortic valve stenosis Shortness of breath Procedures Transthoracic echocardiogram (TTE) complete with contrast, bubble, strain, and 3D PRN IN ECHO TTHRC R-T 2D W/WOM-MODE COMPL SPEC&COLR D IN TTE W OR WO FOL WCON,DOPPLER Laureen Chapman, PATomasC [address] [place] [address] Referral ID Status Reason Start Date Expiration Date Visits Re quested Visits Authorized [id number] Closed 08/08/2023 08/07/2024 1 1 Care Team (unrecognized sect ion and content) Care Team Personnel Name: RADHA BRIAN MD Member Role: Primary Care Physician Address: Address: [address] [place] [phone] Care Teams (unrecognized sec tion and content) Jar Capper Relationship Specialty Start Date End Date Radha Brian MD [address] [place] [phone] PCP - General 03/08/19 Jar Capper Relationship Specialty Start Date End Date Radha Brian MD [address] [place] [phone] PCP - General 03/08/19 Jar Capper Relationship Specialty Start Date End Date Radha Brian MD [address] [place] [phone] PCP - General 03/08/19 Jar Capper Relationship Specialty Start Date End Date Radha Brian MD [address] [place] [phone] PCP - General 03/08/19 FOR RECORDS PERTAINING TO PATIENTS WHO ARE OR HAVE BEEN ENROLLED IN A CHEMICAL DEPENDENCY/SUBSTANCEABUSE PROGRAM, SOME INFORMATION MAY BE OMITTED. This clinical summary was aggregated from multiple sources. Caution should be exercised in using it in the provision of clinical care. This summary normalizes information from multiple sources, and as a consequence, information in this document may materially change the coding, format and clinical context of patient data. In addition, data may be omitted in some cases. CLINICAL DECISIONS SHOULD BE BASED ON THE PRIMARY CLINICAL RECORDS. [facility] [employer] provides no warranty or guarantee of the accuracy or completeness of information in this document.
== END | disposition home or self-care (01) ==
LOC: CT 12:39
PROVIDERS: PCP Family Medicine Geriatric Medicine; Referring Provider Orthopaedic Surgery; Visit Provider Orthopaedic Surgery
DX: Z96.652 Presence of left artificial knee joint (principal)
CPT/HCPCS: 73700

== ENCOUNTER → 2023-12-04 | Outpatient (CLI) | payer MEDICARE, OTHER, SELFPAY ==
--- NOTE | 2023-12-04 11:41 | EKG12_ITS ---
Test Reason : PREOP Blood Pressure : / mmHG Vent. Rate : 142 BPM Atrial Rate : 357 BPM P-R Int : 000 ms QRS Dur : 096 ms QT Int : 322 ms P-R-T Axes : 000 015 080 degrees QTc Int : 495 ms Atrial fibrillation Marked ST abnormality, possible inferior subendocardial injury Abnormal ECG Confirmed by CURT HERNANDEZ, GREGORIA ([id number]), photo editor JOSE M GREGORY ([id number]) on 12/10/2023 10:03:58 AM Referred By: Gama Garza Confirmed By:ANDRA ELIAS MD
== END | disposition home or self-care (01) ==
LOC: PSN 11:40
PROVIDERS: PCP Family Medicine Geriatric Medicine; Referring Provider Orthopaedic Surgery; Visit Provider Orthopaedic Surgery
DX: Z01.818 Encounter for other preprocedural examination (principal); I48.91 Unspecified atrial fibrillation; Z01.810 Encounter for preprocedural cardiovascular examination; I10 Essential (primary) hypertension; M17.11 Unilateral primary osteoarthritis, right knee; Z79.01 Long term (current) use of anticoagulants; Z79.899 Other long term (current) drug therapy
CPT/HCPCS: 93005

== ENCOUNTER → 2023-12-11 | Outpatient (CLI) | payer MEDICARE, OTHER, SELFPAY ==
--- OUTSIDE RECORDS SUMMARY | 2023-12-11 12:00 | XMS RPT_ITS | CCD ---
Author Name Unknown Address [address] [place] [address] Organization [facility] Care Team Providers Care Rate And Cost Analyst Name Role Phone PA VALLEJODeidra Unavailable Unavailable RADHA BRIAN Unavailable Unavailable JOSE MARIA MEYER Unavailable Unavailable JOSE MARIA MEYER Unavailable Unavailable *SELF, REFERRED Unavailable Unavailable UNKNOWN, PCP Unavailable Unavailable Radha Brian Primary Care Provider Radha Brian Primary Care Provider [phone] RADHA BRIAN MD Primary Care Physician SNEHAL SULLIVAN, DR. GARCIA Primary Care Unavailable RADHA MA MD Referring Unavailable RADHA MA MD Attending Unavailable Radha Brian MD Primary Care Provider Radha Brian MD Primary Care Provider [phone] RADHA BRIAN Primary Care Unavailable DUNG PHILLIPS Attending UnavailRADHA Smith Primary Care Unavailable LISSA OLEA Attending Unavailable RADHA BRIAN Primary Care Unavailable LAUREEN CHAPMAN Attending Unavailable LAUREEN CHAPMAN Referring Unavailable LAUREEN CHAPMAN Attending Unavailable RADHA BRIAN Primary Care Unavailable LISSA OLEA Attending Unavailable RADHA BRIAN Primary Care Unavailable Medications Current Medications Medication Drug Class(es) Dates Sig (Normalized) Sig (Original) apixaban 5 mg oral tablet (14 sources) Factor Xa Inhibitor Start: 11-07-2022 End: 08-08-2023 take 1 tablet by mouth twice daily Eliquis 5 MG tablet Take 1 tablet (5 mg) by mouth 2 times daily. 180 tablet 3 08/08/2023 Active Completed/Discontinued Medications Medication Drug Class(es) Dates Sig (Normalized) Sig (Original) acetaminophen 500 mg oral tablet (4 sources) End: 11-21-2023 acetaminophen (Tylenol Extra Strength) 500 MG tablet 2 tab Q 8 hours 0 11/21/2023 Discontinued (Med list cleanup) 10 ml lidocaine hydrochloride 10 mg/ml injection (1 source) Antiarrhythmic, Amide Local Anesthetic Start: 05-03-2020 End: 05-03-2020 lidocaine PF 1 % injection 5 mL Problems Active Problems Problem Classification Problem Date Documented Date Episodic/Chronic Cardiac dysrhythmias (20 sources) Paroxysmal atrial fibrillation; Translations: [Paroxysmal atrial fibrillation] Onset: 01-02-2020 01-02-2020 Chronic Coagulation and hemorrhagic disorders (10 sources) Thrombocytopenic disorder; Translations: [Thrombocytopenia, unspecified] Onset: 04-05-2017 07-23-2022 Chronic Essential hypertension (7 sources) Essential hypertension; Translations: [Essential (primary) hypertension] Onset: 02-05-2023 Chronic Heart valve disorders (5 sources) Aortic stenosis, non-rheumatic ; Translations: [Nonrheumatic aortic (valve) stenosis] Onset: 08-08-2023 08-08-2023 Chronic Osteoarthritis (1 source) Osteoarthritis of knee; Translations: [Bilateral primary osteoarthritis of knee] Chronic Unclassified (1 source) Longstanding persistent atrial fibrillation; Translations: [Longstanding persistent atrial fibrillation (HCC)] Onset: 03-28-2023 Past or Other Problems Problem Classification Problem Date Documented Da te Episodic/Chronic Open wounds of extremities (1 source) Laceration of index finger; Translations: [Laceration of right index finger without foreign body without damage to nail, initial encounter] Episodic Other lower respiratory disease (5 sources) Dyspnea; Translations: [Shortness of breath] Onset: 08-08-2023 08-08-2023 Episodic Other lower respiratory disease (1 source) Shortness of breath; Translations: [Shortness of breath] Onset: 08-08-2023 Episodic Unclassified (4 sources) Encounter for screening for malignant neoplasm of colon; Translations: [Platelet count below reference range] Onset: 04-05-2017 04-05-2017 Episodic Results Test Name Value Interpretation Reference Range Facil ity Vital Signs Date Time Vital Sign Value Performing Clinician Duran sanchez 11-21-2023 09:21-0500 Diastolic blood pressure 70 mm[Hg] Lissa Olea MD Work Phone: [employer] 11-21-2023 09:21-0500 Systolic blood pressure 168 mm[Hg] Lissa Olea MD Work Phone: [facility] 11-21-2023 09:13-0500 Body height 181.6 cm Lissa Olea MD Work Phone: [facility] 11-21-2023 09:13-0500 Body mass index (BMI) [Ratio] 24.45 kg/m2 Lissa Olea MD Work Phone: [facility] 11-21-2023 09:13-0500 Body weight 80.65 kg Lissa Olea MD Work Phone: [facility] 11-21-2023 09:13-0500 Heart rate 55 /min Lissa Olea MD Work Phone: [facility] 11-21-2023 09:13-0500 SaO2% (BldA) [Mass fraction] 96 % Lissa Olea MD Work Phone: [facility] 08-18-2023 11:06-0500 Body height 175.3 cm [employer] PA-C Work Phone: [employer] [facility] 08-18-2023 11:06-0500 Body mass index (BMI) [Ratio] 24.96 kg/m2 [employer] PA-C Work Phone: [facility] 08-18-2023 11:06-0500 Body weight 76.66 kg LaureenMas Con Movil PA-C Work Phone: [facility] 08-08-2023 13:37-0400 Body height 176.5 cm Laureen Chapman PA-C Work Phone: [employer] [facility] 08-08-2023 13:37-0400 Body mass index (BMI) [Ratio] 24.7 kg/m2 Laureen Chapman PA-C Work Phone: [employer] [facility] 08-08-2023 13:37-0400 Body weight 76.97 kg [employer] PA-C Work Phone: [facility] 08-08-2023 13:37-0400 Diastolic blood pressure 50 mm[Hg] Laureen Chapman PA-C Work Phone: [facility] 08-08-2023 13:37-0400 Heart rate 97 /min Laureen Chapman PA-C Work Phone: [facility] 08-08-2023 13:37-0400 SaO2% (BldA) [Mass fraction] 97 % Laureen Chapman PA-C Work Phone: [facility] 08-08-2023 13:37-0400 Systolic blood pressure 102 mm[Hg] Laureen Chapman PA-C Work Phone: [facility] 02-05-2023 15:40-0400 Body height 180.3 cm Lissa Olea MD Work Phone: [facility] 02-05-2023 15:40-0400 Body mass index (BMI) [Ratio] 23.51 kg/m2 Lissa Olea MD Work Phone: [facility] 02-05-2023 15:40-0400 Body weight 76.48 kg Lissa Olea MD Work Phone: [facility] 02-05-2023 15:40-0400 Diastolic blood pressure 68 mm[Hg] Lissa Olea MD Work Phone: [facility] 02-05-2023 15:40-0400 Heart rate 46 /min Lissa Olea MD Work Phone: [facility] 02-05-2023 15:40-0400 SaO2% (BldA) [Mass fraction] 96 % Lissa Olea MD Work Phone: [facility] 02-05-2023 15:40-0400 Systolic blood pressure 128 mm[Hg] Lissa Olea MD Work Phone: [facility] 05-03-2020 16:05-0400 BP Diastolic 72 mm[Hg] [facility] [place] 05-03-2020 16:05-0400 BP Systolic 156 mm[Hg] [facility] [place] 05-03-2020 16:05-0400 Pulse (Heart Rate) 62 /min Radha Short [facility], [place] 05-03-2020 16:05-0400 Pulse Oximetry 100 % Radha Short [facility] , [place] 05-03-2020 16:05-0400 Respiratory Rate 16 /min aRdha Short [facility], [place] 05-03-2020 14:50-0400 BMI (Body Mass Index) 23.71 kg/m2 Radha Short [facility], [place] 05-03-2020 14:50-0400 Body Temperature 97.2 [degF] Radha Short [facility], [place] 05-03-2020 14:50-0400 Body weight 77.11 kg Radha Short [facility] , [place] Encounters Encounter Date Encounter Type Care Provider Facility Start: 12-03-2023 Telephone encounter Lissa rosenbaum MD Work Phone: [facility] Cardiology Procedures Date Procedure Procedure Detail Performing [...] Work Phone: Start: 05-03-2020 LACERATION REPAIR Belen L Chase Work Phone: Start: 02-02-2020 Lipid 1996 panel - S noreen or Plasma Lissa Olea MD Work Phone: Start: 05-22-2019 Echo tthrc r-t 2d w/wom-mode compl spec&colr d Laureen Chapman Work Phone: Plan of Treatment Date Care Activity Detail Author Start: 11-02-2026 DTaP/Tdap/Td vaccine (2 - Td) DTaP/Tdap/Td vaccine (2 - Td) [place], [place] Start: 11-02-2026 DTaP/Tdap/Td Vaccines (2 - Td or Tdap) DTaP/Tdap/Td Vaccines (2 - Td or Tdap) [facility] Start: 02-01-2025 Lipid panel Lipid Panel [facility] Start: 12-03-2024 Creatinine measurement Creatinine Level [facility] Start: 12-03-2024 Potassium measurement Potassium Level [facility] Start: 08-18-2024 Echocardiography Echocardiogram [facility] Start: 08-08-2024 Creatinine measurement Creatinine Level [facility] Start: 08-08-2024 Potassium measurement Potassium Level [facility] Start: 12-25-2023 End: 12-25-2023 Patient encounter procedure 12/25/2023 9:00 AM EDT Office Visit [facility] [address] [place] [id number] Laureen Chapman PAPalmer [address] [place], [place] [id number] [facility] Start: 12-20-2023 End: 11-21-2024 Basic metabolic 1998 panel - Serum or Plasma Basic metabolic panel Lab Routine Essential hypertension Expected: 12/20/2023 (Approximate), Expires: 11/21/2024 [facility] Work Phone: Payers Date Payer Category Payer Unknown [employer] [place] MEDIC[place] SUPPLEMENT [id number] 2021-Present [address] [place] [address] Supplement [id number] 2018 Unknown [employer] M EDICAL MUTUAL [address] xxxxxxxxxxxx 2018-Present [phone] [address] [place] [address] xxxxxxxxxxxx [id number] 2018 Unknown [id number] 2018 Unknown [employer] M [employer] M[employer]UAL [address] [id number] 2018-Present [phone] [address] [place] [address] [id number] 2017 Medicare MEDICARE MEDICAR E PART A AND B xxxxxxxxxxx 2017-Present [phone] [place] [address] xxxxxxxxxxx [id number] 2017 Medicare MEDICARE MEDICAR E PART A AND B [id number] 2017-Present [phone] [place] [address] [id number] 2017 Medicare [id number] 2017 Medicare MEDICARE MEDICAR E PART A AND B [id number] 2017-Present [address] [place] [address] Medicare [id number] 1950 Unknown [id number] Unknown [id number] Social History Date Type Detail Facility Start: 05-05-2019 End: 05-03-2020 Tobacco smoking status [facility] Never smoker [facility] Start: 05-05-2019 End: 11-21-2023 Alcohol intake Yes [facility] Start: 05-05-2019 Alcohol Comment Thur, some Fri and Sun, 6 beers each time min. [facility] [place] [facility] Start: 05-03-2020 [facility] use and exposure [facility] Start: 05-03-2020 End: 09-26-2022 Alcohol intake Current drinker of alcohol (finding) [facility] J[place] Start: 05-27-2019 Alcohol Comment 3 beers a day on thur, fri, sun [facility] JAYNE Exposure to SARS-CoV -2 (event) Not sure [place], [place] Tobacco smoking status No Smokin g Status Entered [facility] Start: 1950 Sex Assigned At Male A [facility] Start: 09-26-2022 End: 11-21-2023 History of Social function [facility] Start: 02-04-2023 Gender identity Identifies as male gender (finding) [facility] Start: 08-08-2023 End: 11-21-2023 Alcohol intake Ex-drinker (finding) [facility] Start: 11-21-2023 Alcohol Comment rarely [facility] Functional Status Date Assessment Result Facility 03-30-2022 Functional Status Objective: Cardiovascular screen: BP: 130/78 HR: 54 BPM O2 sat: 97% Gait: genu varum noted bilaterally Observation in standing: Genu Varum Joint Mobility: min loss extension Effusion: no palpable or observed knee effusion present [facility] Clinical Notes 02-05-2023 to 12-04-2023 Telephone Encounter - Laureen Chapman PA-C - 12/04/2023 11:34 AM ESTTelephone Encounter - Laureen Chapman PA-C - 12/04/2023 11:34 AM ESTTelephone Encounter - Lasha Garza - 12/04/2023 9:33 AM EST Note Date & Type Note Facility 12-04-2023 Telephone encounter Note Reviewed BMP results with the zyjsmql-yfsuxe-xomzoht to add hydrochlorothiazide 25 mg daily. He is then to obtain another BMP in 1 week. Orders placed. [facility] 12-04-2023 Miscellaneous Notes Reviewed BMP results with the qjzuaxv-ltlpzt-mcxlvep to add hydrochlorothiazide 25 mg daily. He is then to obtain another BMP in 1 week. Orders placed. Patient called to follow up on this. He can be reached on his cell phone [phone]. I talked with the patient. I advised him to obtain a BMP given the recent titration of his lisinopril. If stable, will plan on changing the lisinopril to lisinopril HCT. He reports he will go today for the BMP. Further recommendations pending lab results. PC to patient. States his BP has been running in the 160s-170s since his last appointment with Dr. Olea. Confirmed he is taking lisinopril 20 mg twice daily and metoprolol 50 mg 1/2 tablet twice daily. Patient sat down and relaxed for 30 minutes then took his BP 185/79 HR 49 @ 2:00 pm today. Denies SOB, syncope, H/A, CP, dizziness, or blurred vision. Will forward message to [employer]. Patient verbalized understanding and agreement. Patient called and said that bp meds were changed and bp still running high in 160's to 170's [phone] documented in this encounter [facility] 12-04-2023 Telephone encounter Note Patient called to follow up on this. He can be reached on his cell phone [phone]. [facility] 12-03-2023 Telephone encounter Note I talked with the patient. I advised him to obtain a BMP given the recent titration of his lisinopril. If stable, will plan on changing the lisinopril to lisinopril HCT. He reports he will go today for the BMP. Further recommendations pending lab results. [facility] 12-03-2023 Telephone encounter Note PC to patient. States his BP has been running in the 160s-170s since his last appointment with Dr. Olea. Confirmed he is taking lisinopril 20 mg twice daily and metoprolol 50 mg 1/2 tablet twice daily. Patient sat down and relaxed for 30 minutes then took his BP 185/79 HR 49 @ 2:00 pm today. Denies SOB, syncope, H/A, CP, dizziness, or blurred vision. Will forward message to Laureen GASPAR. Patient verbalized understanding and agreement. [facility] 12-03-2023 Telephone encounter Note Patient called and said that bp meds were changed and bp still running high in 160's to 170's [phone] [facility] 11-21-2023 Telephone encounter Note I faxed today's office note to Dr Radha Ma's office in [place] fax [phone] ph [phone] [facility] 11-21-2023 Miscellaneous Notes I faxed today's office note to Dr Radha Ma's office in [place] fax [phone] documented in this encounter [facility] 11-21-2023 History of Present illness Narrative [facility] Office Note DATE of SERVICE: 11/21/23 TIME of SERVICE: 9:23 AM Chief Complaint: Chief Complaint Patient presents with 3 Month Follow Up History of Present Illness: Kurt Matthews is a 73 y.o. male with known HTN, thrombocytopenia, PAF, ASand bradycardia who presents to the office today for cardiac reassessment. He has stable moderate aortic stenosis and is asymptomatic. He reports brief infrequent well tolerated uncomplicated atrial fibrillation. He is appropriately anticoagulated. He has no symptoms of failure near syncope or syncope. Patient reports he is in need of a total knee arthroplasty. This is tentatively scheduled in the coming month. He is at increased risk on the basis of his poorly controlled hypertension I have advised that he escalate lisinopril to 20 mg twice daily prior to proceeding with his much-needed surgery. He will have follow-up labs in approximately 1 month and will return for repeat blood pressure assessment at that time. Past Medical History: Past Medical History: Diagnosis [...] Substance Use Topics Alcohol use: Not Currently Comment: rarely Drug use: No Comment: caffeine use: decaf coffe and 1 can of soda a day, 1 glass of sweet tea a week Medications: Current Outpatient Medications: Eliquis 5 MG tablet, Take 1 tablet (5 mg) by mouth 2 times daily., Disp: 180 tablet, Rfl: 3 lisinopril 10 MG tablet, Take 10 mg by mouth 2 times daily., Disp: , Rfl: metoprolol tartrate (Lopressor) 50 MG tablet, TAKE 1/2 TABLET BY MOUTH TWICE A DAY ORALLY TWICE A DAY 90 DAYS, Disp: , Rfl: Review of Systems: Review of Systems Constitutional: Negative for chills, diaphoresis and fever. HENT: Negative for nosebleeds. Respiratory: Positive for shortness of breath (heavy exertion). Negative for cough, chest tightness and wheezing. Cardiovascular: Positive for palpitations (rare). Negative for chest pain and leg swelling. Gastrointestinal: Negative for abdominal pain, blood in stool, nausea and vomiting. Genitourinary: Negative for hematuria. Neurological: Negative for dizziness, syncope and light-headedness. Hematological: Does not bruise/bleed easily. Psychiatric/Behavioral: Negative for dysphoric mood and suicidal ideas. Physical Examination: Vitals: Vitals: 11/21/23 0913 11/21/23 0921 BP: (!) 150/68 (!) 168/70 BP Location: Left arm Patient Position: Sitting BP Cuff Size: Adult Pulse: 55 SpO2: 96% Weight: 177 lb 12.8 oz (80.6 kg) Height: 5' 11.5 (1.816 m) Body mass index is 24.45 kg/m . Physical Exam Constitutional: Appearance: Normal [...] Mood and Affect: Mood normal. Laboratory Tests: Lab Results Component Value Date WBC 7.5 08/08/2023 HGB 17.6 (H) 08/08/2023 HCT 53.2 (H) 08/08/2023 MCV 84.8 08/08/2023 PLT 166 08/08/2023 Lab Results Component Value Date GLUCOSE 79 08/08/2023 CALCIUM 10.2 08/08/2023 NA 141 02/02/2020 K 4.6 02/02/2020 CO2 29 08/08/2023 CL 105 02/02/2020 BUN 22 08/08/2023 CREATININE 1.34 (H) 08/08/2023 Lab Results Component Value Date CHOL 118 [...] method is 1.4 cm^2. Assessment and Plan: AF Paroxysmal, Nonvalvular Infrequent short lived uncomplicated recurrences. Appropriately anticoagulated. -moderate, stable per most recent echocardiogram 2022-the patient does report shortness of breath with heavy exertion and has had increasing episodes of atrial fibrillation. He subsequently is to undergo a follow-up echocardiogram. HTN-Poorly controlled. Will escalate Lisinopril to 20 mg po bid Dyslipidemia- Intolerant to statin therapy. Bradycardia-Stable. Asymptomatic Pre-op evaluation The pt is at increased risk of periop cardiovascular morbidity and mortality on the basis of his poorly controlled HTN. He will escalate Antihypertensive therapy. I have advised the pt to hold Eliquis 48 hours prior to surgery as per current ACC/ AHA guidelines. He should resume eliquis as soon as possible post op based on the treating surgeon's discretion. documented in this encounter [facility] 11-21-2023 Instructions Lissa Olea MD - 11/21/2023 9:45 AM EST Please call our office at [phone] if you have questions or if you are having worsening symptoms of chest pain, pressure, or heaviness, aching, tightness or discomfort, worsening shortness of breath, palpitations, lightheadedness, or loss of consciousness. Please seek emergency care or call 911 if symptoms are severe. Please increase lisinopril to 20 mg twice a day Please have lab work done in a month. Continue all other medications as prescribed. If you need medication refills, please call our office during business hours (M-F 8a-4:30p) documented in this encounter [facility] 08-08-2023 History of Present illness Narrative [facility] Office Note DATE [...] subsequently was in the emergency room at [facility] 03/2023. He spontaneously converted back to [...] He is not drinking alcohol or taking fgxi-bqq-dpukags supplements. He drinks an occasional soda and [...] in 3 months. documented in this encounter [facility] 08-08-2023 Instructions Laureen Chapman PA-C - 08/08/2023 1:30 PM EDT -don't eat or drink after midnight and call Laureen in the morning at [phone] at 8 am to let us know if you are back in rhythm -blood test today -echocardiogram documented in this encounter [facility] 03-16-2023 Telephone encounter Note Fadia pt seen today at [facility] ED for AF RVR. Converted spontaneously. Please schedule follow up with myself or Laureen. Thanks Lissa Olea MD [facility] 03/28/23 4:01 PM Per call from Juani at [facility], I faxed last office note and ekg to [phone] [facility] 03-16-2023 Miscellaneous Notes Per call from [place] at [facility], I faxed last office note and ekg to [phone] documented in this encounter [facility] 03-16-2023 Miscellaneous Notes Fadia pt seen today at [facility] ED for AF RVR. Converted spontaneously. Please schedule follow up with myself or Laureen. Thanks Lissa Olea MD [facility] 03/28/23 4:01 PM Per call from [place] at [facility], I faxed last office note and ekg to [phone] documented in this encounter [facility] 02-06-2023 Telephone encounter Note Per Dr Olea, I faxed yesterdays note to [facility] for left total knee surgery 03-19-[address] Radha Ma fax [phone] [facility] 02-06-[address] Olea, I faxed yesterdays note to [facility] for left total knee surgery 03-19-[address] Radha Ma fax [phone] documented in this encounter [facility] 02-05-2023 History of Present illness Narrative [facility] Office Note DATE of SERVICE: 02/05/23 TIME of SERVICE: 3:45 PM Chief Complaint: Chief Complaint Patient presents with Cardiac Clearance For L TKA History of Present Illness: Kurt A Perren is a 72 y.o. male with a [...] of the surgeon. documented in this encounter [facility] 02-05-2023 Instructions Lissa Olea MD - 02/05/2023 3:15 PM EDT Please call our office at [phone] if you have questions or if you [...] hours (M-F 8a-4:30p) documented in this encounter [facility] Evaluation + Plan note No data available for this section [facility] Diagnosis Paroxysmal atrial fibrillation (HCC)- Primary Atrial fibrillation Nonrheumatic aortic valve stenosis Shortness of breath Essential hypertension Unspecified essential hypertension documented in this encounter [facility] note* Diagnosis Paroxysmal atrial fibrillation (HCC) Atrial fibrillation Nonrheumatic aortic valve stenosis Shortness of breath documented in this encounter [facility] note* Diagnosis Essential hypertension- Primary Unspecified essential hypertension documented in this encounter [facility] note* Diagnosis Essential hypertension- Primary Unspecified essential hypertension documented in this encounter 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 Advance Directives and Living Will Power of Biological Engineer Documents on File Type Date Recorded Patient Corrections Sergeant Expl anation ACP-Advance Directive ACP-Power of Biological Engineer Documents on File Type Date Recorded Patient Corrections Sergeant Expl anation Advance Directives and Living Will Power of Biological Engineer Reason for Referral Status Reason Specialty Diagnoses / Procedures Referre d By Contact Referred To Contact Closed Cardiology Diagnoses Essential hypertension Paroxysmal atrial fibrillation (HCC) Shortness of breath Procedures ECHO Complete 2D W Doppler W Color Laureen Chapman PA-C [address] [place] [address] Specialty Diagnoses / Procedures Referred By Contac t Referred To Contact Cardiology Diagnoses Paroxysmal atrial fibrillation (HCC) Nonrheumatic aortic valve stenosis Shortness of breath Procedures Transthoracic echocardiogram (TTE) complete with contrast, bubble, strain, and 3D PRN WI ECHO TTHRC R-T 2D W/WOM-MODE COMPL SPEC&COLR D WI TTE W OR WO FOL WCON,DOPPLER Laureen Chapman PA-C [address] [place] [address] Referral ID Status Reason Start Date Expiration Date V isits Requested Visits Authorized [id number] Pending Review 08/08/2023 08/07/2024 1 1 Referral ID Status Reason Start Date Expiration Date Visits Re quested Visits Authorized [id number] Closed 08/08/2023 08/07/2024 1 1 Assessments Diagnosis Essential hypertension Unspecified essential hypertension Paroxysmal atrial fibrillation (HCC) Atrial fibrillation Shortness of breath Diagnosis Laceration of right index finger without foreign body without damage to nail, initial encounter Discharge Instructions * Attachments The following attachments cannot be sent through Care Everywhere. * Lacerations: Stitches (German) documented in this encounter Additional Source Comments (unrecognized sect ion and content) No Status Records FoundNo Status Records FoundNo Status Records FoundNo Status Records FoundNo Status Records FoundNo Status Records FoundNo Status Records Found INFORMATION SOURCE (unrecogn ized section and content) DATE CREATED AUTHOR AUTHOR'S ORGANIZ ATION 04/05/2018 [facility] DATE CREATED AUTHOR AUTHOR'S ORGANIZ ATION 05/28/2019 [facility] DATE CREATED AUTHOR AUTHOR'S ORGANIZ ATION 10/20/2020 [facility] DATE CREATED AUTHOR AUTHOR'S ORGANIZ ATION 08/31/[address] [facility] ([place]) DATE CREATED AUTHOR AUTHOR'S ORGANIZ ATION 04/12/2023 [facility] DATE CREATED AUTHOR AUTHOR'S ORGANIZ ATION 12/11/2023 [facility] Reason for Visit (unrecogniz ed section and content) Reason Comments Cardiac Clearance For L TKA Reason Onset Date Comments Cardiac Clearance 02/06/2023 Reason Onset Date Comments OTHER 03/16/2023 Reason Comments 6 Month Follow-up Specialty Diagnoses / Procedures Referred By Mary Ann t Referred To Contact Cardiology Diagnoses Paroxysmal atrial fibrillation (HCC) Nonrheumatic aortic valve stenosis Shortness of breath Procedures Transthoracic echocardiogram (TTE) complete with contrast, bubble, strain, and 3D PRN WI ECHO TTHRC R-T 2D W/WOM-MODE COMPL SPEC&COLR D WI TTE W OR WO FOL WCON,DOPPLER Larueen Chapman PA-C [address] [place] [address] Referral ID Status Reason Start Date Expiration Date Visits Re quested Visits Authorized [id number] Closed 08/08/2023 08/07/2024 1 1 Reason Comments 3 Month Follow Up Reason Onset Date Comments OTHER 11/21/2023 Reason Onset Date Comments OTHER 12/03/2023 Care Team (unrecognized sect ion and content) Care Team Personnel Name: SNEHAL HERNANDEZ, RADHA Member Role: Primary Care Physician Address: Address: [address] [place] [phone] Care Teams (unrecognized sec tion and content) Rate And Cost Analyst Relationship Specialty Start Date End Date Radha Brian MD [address] [place] [phone] PCP - General 03/08/19 Rate And Cost Analyst Relationship Specialty Start Date End Date Radha Brian MD [address] [place] [phone] PCP - General 03/08/19 Rate And Cost Analyst Relationship Specialty Start Date End Date Radha Brian MD [address] [place] [phone] PCP - General 03/08/19 Rate And Cost Analyst Relationship Specialty Start Date End Date Radha Brian MD [address] [place] [phone] PCP - General 03/08/19 Rate And Cost Analyst Relationship Specialty Start Date End Date Radha Brian MD [address] [place] [phone] PCP - General 03/08/19 Rate And Cost Analyst Relationship Specialty Start Date End Date Radha Brain MD [address] [place], [place] [phone] PCP - General 03/08/19 Rate And Cost Analyst Relationship Specialty Start Date End Date Radha Brian MD [address] [place] [phone] PCP - General 03/08/19 FOR RECORDS PERTAINING [...] BE BASED ON THE PRIMARY CLINICAL RECORDS. [facility]. provides no warranty or guarantee of the accuracy or completeness of information in this document.
[2023-12-11 12:04] LABS: Absolute Lymphocyte Count 1.55 X10^3/uL (0.83-4.51); Absolute Neutrophil Count 2.9 X10^3/uL (2.0-7.7); Basophil# 0.04 X10^3/uL; Basophil% 0.8 % (0-1); Eosinophil# 0.09 X10^3/uL; Eosinophils% 1.8 % (0-5); Hematocrit 45.9 % (40-54); Hemoglobin 15.1 g/dL (13.0-16.5); Lymphocyte # 1.55 X10^3/ul (0.83-4.51); Lymphocyte % 30.5 % (19-41); Mean Corp Hgb Conc 32.9 g/dL (32-36); Mean Corpuscular Hgb 27.4 pg (27.0-32.0); Mean Corpuscular Volume 83.2 fL (80-94); Monocyte% 9.8 % (0-10); NRBC Flagged by Analyzer 0 % (0-5); Neutrophil # 2.87 X10^3/uL (2.7-7.7); Neutrophil % 56.5 % (47-70); Platelet Count 143 K/mm3 (150-450); RBC Distribution Width CV 13.3 % (11.6-14.6); RBC Distribution Width SD 40.9 fl (35.1-43.9); Red Blood Count 5.52 M/mm3 (4.6-6.2); White Blood Count 5.1 K/mm3 (4.4-11.0)
[2023-12-11 12:26] LABS: Anion Gap 7 (5-15); BUN 25 mg/dL (7-18); BUN/Creat Ratio 16.9 RATIO (10-20); Calcium,Total 9.1 mg/dL (8.5-10.1); Chloride 108 mmol/L (98-107); Creatinine, Serum 1.48 mg/dL (0.70-1.30); EST Glomerular Filtration Rate 50 mL/min (>60); Est Glom Filt Rate - Afr Amer 60 mL/min (>60); Glucose 119 mg/dL (74-106); Sodium Level 141 mmol/L (136-145)
== END | disposition home or self-care (01) ==
LOC: LAB 11:35
PROVIDERS: PCP Family Medicine Geriatric Medicine; Referring Provider Orthopaedic Surgery; Visit Provider Orthopaedic Surgery
DX: Z01.818 Encounter for other preprocedural examination (principal); I48.91 Unspecified atrial fibrillation; M17.11 Unilateral primary osteoarthritis, right knee; I10 Essential (primary) hypertension; Z79.01 Long term (current) use of anticoagulants; Z79.899 Other long term (current) drug therapy; Z01.810 Encounter for preprocedural cardiovascular examination; Z01.812 Encounter for preprocedural laboratory examination
CPT/HCPCS: 36415; 80048; 85025

== ENCOUNTER → 2023-12-18 | Outpatient (CLI) | payer MEDICARE, OTHER, SELFPAY ==
--- NOTE | 2023-12-17 11:15 | KNEE_PTH ---
PATHOLOGY RESULTS PATIENT: SIGRID YOUNG LOC: [facility] U#:[id number] AGE/SX: 73/M ROOM: RE12/18/[address]: Dr. Gama Garza MD : 1950 BED: DIS: 12/18/2023 SPEC #: [id number] RECD: 12/18/23 15:35 STATUS: LEONARDO REYifan #: [id number] EMETERIO: 12/17/23 11:[address]: Gama Garza DEPT: SURGICAL PATHOLOGY RECD BY: Kristel Maravilla ENTERED: 12/19/23 09:36 SP TYPE: TOTAL KNEE OTHR DR: Dr. Gama Monroe MD Tissues: Knee, NOS Procedures: Decalcification bone/plaque Surgery Specimen Level IV HEADER OPERATION: Right total knee arthroplasty PRE-OP DIAGNOSIS: Severe grade fourth osteoarthritis, right knee TISSUE SUBMITTED: Right knee MICROSCOPIC DIAGNOSIS Bone and soft tissue, Right knee, total knee replacement/resection: Pieces of bone with degenerative osteoarthritic changes. Fibroadipose tissue, fibroconnective tissue and reactive synovial tissue. VIDA: 12/24/2023 MICROSCOPIC DESCRIPTION Slides are reviewed. GROSS DESCRIPTION Received is one container designated bone and soft tissue Right knee. The specimen consists of multiple fragments of broderick-yellow bone measuring in aggregate 10.0 x 11.0 x 3.5 cm. Also in the specimen container are multiple fragments of yellow-white soft tissue measuring in aggregate 7.0 x 5.0 x 2.0 cm. A number of bony fragments contain articular surfaces consistent with tibial plateau and femoral condyle and displaying prominent osteophyte formation, eburnation and bone erosion. High Tension Tester sections are submitted in two cassettes as follows: 1 - soft tissue, 2 - bone after decalcification. / VIDA/ 12/19/2023 TC:5 [facility]: [id number], [id number]
--- OUTSIDE RECORDS SUMMARY | 2023-12-19 02:37 | XMS RPT_ITS | CCD ---
Author Name Unknown Address [address] [place] [address] Organization [facility] Care Team Providers Care Business Reporting Developer Name Role Phone PA VALLEJODeidra Unavailable Unavailable RADHA BRIAN Unavailable Unavailable JOSE MARIA MEYER Unavailable Unavailable JOSE MARIA MEYER Unavailable Unavailable *SELF, REFERRED Unavailable Unavailable UNKNOWN, PCP Unavailable Unavailable Radha Brian Primary Care Provider Radha Brian Primary Care Provider [phone] RADHA BRIAN MD Primary Care Physician SNEHAL SULLIVAN, DR. GARCIA Primary Care Unavailable RADHA MA MD Referring Unavailable RADHA MA MD Attending Unavailable Radha Brian MD Primary Care Provider Radha Biran MD Primary Care Provider RADHA BRIAN Primary Care Unavailable DUNG PHILLIPS Attending UnavailLISSA Vernon Attending Unavailable RADHA BRIAN Primary Care Unavailable LAUREEN CHAPMAN Attending Unavailable RADHA BRIAN Primary Care Unavailable LAUREEN CHAPMAN Attending Unavailable LAUREEN CHAPMAN Referring Unavailable RADHA BRIAN Primary Care Unavailable LISSA OLEA Attending Unavailable RADHA BRIAN Primary Care Unavailable Medications Current Medications Medication Drug Class(es) Dates Sig (Normalized) Sig (Original) apixaban 5 mg oral tablet (17 sources) Factor Xa Inhibitor Start: 11-07-2022 End: 08-08-2023 take 1 tablet by mouth twice daily Eliquis 5 MG tablet Take 1 tablet (5 mg) by mouth 2 times daily. 180 tablet 3 08/08/2023 Active Completed/Discontinued Medications Medication Drug Class(es) Dates Sig (Normalized) Sig (Original) acetaminophen 500 mg oral tablet (5 sources) End: 11-21-2023 acetaminophen (Tylenol Extra Strength) [...] 01-02-2020 01-02-2020 Chronic Coagulation and hemorrhagic disorders (13 sources) Thrombocytopenic disorder; Translations: [Thrombocytopenia, unspecified] Onset: 04-05-2017 07-23-2022 Chronic Essential hypertension (8 sources) Essential hypertension; Translations: [Essential (primary) hypertension] [...] 70 mm[Hg] Lissa Olea MD Work Phone: [facility] 11-21-2023 09:21-0500 Systolic blood pressure 168 mm[Hg] Lissa Olea MD Work Phone: [facility] 11-21-2023 09:13-0500 Body height 181.6 cm Lissa Olea MD Work Phone: [facility] 11-21-2023 09:13-0500 Body mass index (BMI) [Ratio] 24.45 kg/m2 Lissa Olea MD Work Phone: [facility] 11-21-2023 09:13-0500 Body weight 80.65 kg Lissa Olea MD Work Phone: [facility] 11-21-2023 09:13-0500 Heart rate 55 /min Lissa Olea MD Work Phone: [facility] 11-21-2023 09:13-0500 SaO2% (BldA) [Mass fraction] 96 % Lissa Olea MD Work Phone: [facility] 08-18-2023 11:06-0500 Body height 175.3 cm [employer] PA-C Work Phone: [facility] [place] 08-18-2023 11:06-0500 Body mass index (BMI) [Ratio] 24.96 kg/m2 [employer] PA-C Work Phone: [facility] 08-18-2023 11:06-0500 Body weight 76.66 kg [employer] PA-C Work Phone: [facility] 08-08-2023 13:37-0400 Body height 176.5 cm Laureen Chapman PA-C Work Phone: [facility] [place] 08-08-2023 13:37-0400 Body mass index (BMI) [Ratio] 24.7 kg/m2 Laureen Chapman PA-C Work Phone: [facility] [place] 08-08-2023 13:37-0400 Body weight 76.97 kg [employer] PA-C Work Phone: [facility] 08-08-2023 13:37-0400 Diastolic blood pressure 50 mm[Hg] Laureen Chapman PA-C Work Phone: [facility] 08-08-2023 13:37-0400 Heart rate 97 /min Laureen Chapman PA-C Work Phone: [facility] 08-08-2023 13:37-0400 SaO2% (BldA) [Mass fraction] 97 % Laureen Chapman PA-C Work Phone: [facility] 08-08-2023 13:37-0400 Systolic blood pressure 102 mm[Hg] Laureen Chapman PA-C Work Phone: [facility] 02-05-2023 15:40-0400 Body height 180.3 cm Lissa Olea MD Work Phone: [facility] 02-05-2023 15:40-0400 Body mass index (BMI) [Ratio] 23.51 kg/m2 Lissa Olea MD Work Phone: [facility] 02-05-2023 15:40-0400 Body weight 76.48 kg Lissa Olea MD Work Phone: [facility] 02-05-2023 15:40-0400 Diastolic blood pressure 68 mm[Hg] Lissa Olea MD Work Phone: [facility] 02-05-2023 15:40-0400 Heart rate 46 /min Lissa Olea MD Work Phone: [facility] 02-05-2023 15:40-0400 SaO2% (BldA) [Mass fraction] 96 % Lissa Olea MD Work Phone: [facility] 02-05-2023 15:40-0400 Systolic blood pressure 128 mm[Hg] Lissa Olea MD Work Phone: [facility] 05-03-2020 16:05-0400 BP Diastolic 72 mm[Hg] [facility] [place] 05-03-2020 16:05-0400 BP Systolic 156 mm[Hg] [facility] [place] 05-03-2020 16:05-0400 Pulse (Heart Rate) 62 /min Radha Short [facility], [place] 05-03-2020 16:05-0400 Pulse Oximetry 100 % Radha Short [facility] , [place] 05-03-2020 16:05-0400 Respiratory Rate 16 /min Radha Short [facility], [place] 05-03-2020 14:50-0400 BMI (Body Mass Index) 23.71 kg/m2 Radha Short [facility], [place] 05-03-2020 14:50-0400 Body Temperature 97.2 [degF] Radha Short [facility], [place] 05-03-2020 14:50-0400 Body weight 77.11 kg Radha Short [facility] , [place] Encounters Encounter Date Encounter Type Care Provider Facility Start: 12-03-2023 Telephone encounter Lissa rosenbaum MD Work Phone: [facility] Procedures Date Procedure Procedure Detail Performing Clinician Start: 12-03-2023 Basic metabolic pane l calcium total Lissa Olea MD Work Phone: Start: 08-18-2023 Echo tthrc r-t 2d w/wom-mode [...] Work Phone: Start: 05-03-2020 LACERATION REPAIR Belen Stone Work Phone: Start: 02-02-2020 Lipid 1996 panel - S noreen or Plasma Lissa Olea MD Work Phone: Start: 05-22-2019 Echo tthrc r-t 2d w/wom-mode compl spec&colr d Laureen Chapman Work Phone: Plan of Treatment Date Care Activity Detail Author Start: 11-02-2026 DTaP/Tdap/Td vaccine (2 - Td) DTaP/Tdap/Td vaccine (2 - Td) [place] Start: 11-02-2026 DTaP/Tdap/Td Vaccines (2 - Td or Tdap) DTaP/Tdap/Td Vaccines (2 - Td or Tdap) [facility] Start: 02-01-2025 Lipid panel Lipid Panel [facility] Start: 12-03-2024 Creatinine measurement Creatinine Level [facility] Start: 12-03-2024 Potassium measurement Potassium Level [facility] Start: 08-18-2024 Echocardiography Echocardiogram [facility] Start: 08-08-2024 Creatinine measurement Creatinine Level [facility] Start: 08-08-2024 Potassium measurement Potassium Level [facility] Start: 12-25-2023 End: 12-25-2023 Patient encounter procedure 12/25/2023 9:00 AM EDT Office Visit [facility] [address] [place] [address] Laureen Chapman, PA-C [address] [place] [address] [facility] Start: 12-20-2023 End: 11-21-2024 Basic metabolic 1998 panel - Serum or Plasma Basic metabolic panel Lab Routine Essential hypertension Expected: 12/20/2023 (Approximate), Expires: 11/21/2024 [facility] Work Phone: Payers Date Payer Category Payer Unknown [employer] [place] MEDIC[place] SUPPLEMENT [id number] 2021-Present [address] [place] [address] Supplement [id number] 2018 Unknown [employer] M EDICAL WHEELING [address] xxxxxxxxxxxx 2018-Present [phone] [address] [place] [address] xxxxxxxxxxxx [id number] 2018 Unknown [id number] 2018 Unknown [employer] M [employer]UAL [address] [id number] 2018-Present [phone] [address] [place] [address] [id number] 2017 Medicare MEDICARE MEDICAR E PART A AND B xxxxxxxxxxx 2017-Present [phone] [place] [address] xxxxxxxxxxx [id number] 2017 Medicare MEDICARE MEDICAR E PART A AND B [id number] 2017-Present [phone] [place] [address] [id number] 2017 Medicare [id number] 2017 Medicare MEDICARE MEDICAR E PART A AND B [id number] 2017-Present [address] [place] [address] Medicare [id number] 1950 Unknown [id number] Unknown [id number] Social History Date Type Detail Facility Start: 05-05-2019 End: 05-03-2020 Tobacco smoking status NHIS Never smoker [facility] Start: 05-05-2019 End: 11-21-2023 Alcohol intake Yes [facility] [place] Start: 05-05-2019 Alcohol Comment Thur, some Fri and Sun, 6 beers each time min. [place] Sex Assigned At Not on file [place] Start: 05-03-2020 Tobacco use and exposure Never used [place] Start: 05-03-2020 End: 09-26-2022 Alcohol intake Current drinker of alcohol (finding) [place] Start: 05-27-2019 Alcohol Comment 3 beers a day on thur, fri, sun [place] Exposure to SARS-CoV -2 (event) Not sure [place] Tobacco smoking status No Smokin g Status Entered [facility] Start: 1950 Sex Assigned At Male A [facility] Start: 09-26-2022 End: 11-21-2023 History of Social function [facility] Start: 02-04-2023 Gender identity Identifies as male gender (finding) [facility] Start: 08-08-2023 End: 11-21-2023 Alcohol intake Ex-drinker (finding) [facility] Start: 11-21-2023 Alcohol Comment rarely [facility] Functional Status Date Assessment Result Facility 03-30-2022 Functional Status Objective: Cardiovascular screen: BP: 130/78 HR: 54 BPM O2 sat: 97% Gait: genu varum noted bilaterally Observation in standing: Genu Varum Joint Mobility: min loss extension Effusion: no palpable or observed [facility]-05-2023 to 12-14-2023 Telephone Encounter - Yari Craig - 12/14/2023 4:24 PM ESTTelephone Encounter - Yari Craig - 12/14/2023 4:24 PM ESTTelephone Encounter - Yari Craig - 12/14/2023 1:04 PM EST Note Date & Type Note Facility 12-14-2023 Telephone encounter Note Note faxed to Dr Radha Ma [phone] [facility] 12-14-2023 Miscellaneous Notes Note faxed to Dr Radha Ma [phone] Radha Ma's office called stating that patient's surgery will probably be cancelled due to abnormal EKG that was done on 12-04-23. She would like our office to review. EKG being faxed. Kaye can be reached at [phone] I faxed today's office note to Dr Radha Ma's office in [place] fax [phone] ph [phone] documented in this encounter [facility] 12-14-2023 Telephone encounter Note Kaye from Dr Radha Ma's office called stating that patient's surgery will probably be cancelled due to abnormal EKG that was done on 12-04-23. She would like our office to review. EKG being faxed. Kaye can be reached at [phone] [facility] 12-04-2023 Telephone encounter Note Reviewed BMP results with the ppjaqmb-xwanye-tropcke to add hydrochlorothiazide 25 mg daily. He is then to obtain another BMP in 1 week. Orders placed. [facility] 12-04-2023 Miscellaneous Notes Reviewed BMP results with the mxukvrf-zfgfvz-eamcdnt to add hydrochlorothiazide 25 mg daily. He is then to obtain another BMP in 1 week. Orders placed. Patient called to follow up on this. He can be reached on his cell phone [phone]. I talked with the patient. I advised [...] or blurred vision. Will forward message to [employer]. Patient verbalized understanding and agreement. Patient called and said that bp meds were changed and bp still running high in 160's to 170's [phone] documented in this encounter [facility] 12-04-2023 Telephone encounter Note Patient called to follow up on this. He can be reached on his cell phone [phone]. [employer] 12-03-2023 Telephone encounter Note I talked with the patient. I advised him to obtain a BMP given the recent titration of his lisinopril. If stable, will plan on changing the lisinopril to lisinopril HCT. He reports he will go today for the BMP. Further recommendations pending lab results. [employer] 12-03-2023 Telephone encounter Note PC to patient. [...] Laureen GASPAR. Patient verbalized understanding and agreement. [employer] 12-03-2023 Telephone encounter Note Patient called and said that bp meds were changed and bp still running high in 160's to 170's [phone] [employer] 11-21-2023 Telephone encounter Note I faxed today's office note to Dr Radha Ma's office in [place] fax [phone] ph [phone] [employer] 11-21-2023 Miscellaneous Notes I faxed today's office note to Dr Radha Ma's office in [place] fax [phone] ph [phone] documented in this encounter [facility] 11-21-2023 History of Present illness Narrative [facility] Office Note DATE of [...] treating surgeon's discretion. documented in this encounter [facility] 11-21-2023 History of Present illness Narrative [facility] Office Note DATE of SERVICE: 11/21/23 TIME of SERVICE: 9:23 AM Chief Complaint: Chief Complaint Patient presents with 3 Month Follow Up History of Present Illness: Kurt Matthews is a 73 y.o. male with known HTN, thrombocytopenia, PAF, aortic stenosis and bradycardia who presents to [...] to statin therapy. Bradycardia-Stable. Asymptomatic Pre-op evaluation TKA The pt is at increased risk of periop cardiovascular morbidity and mortality on the basis of his poorly controlled HTN. He will escalate Antihypertensive therapy. I have advised the pt to hold Eliquis 48 hours prior to surgery as per current ACC/ AHA guidelines. He should resume eliquis as soon as possible post op based on the treating surgeon's discretion. : Patient was found to be in uncomplicated, asymptomatic rapid atrial fibrillation at preoperative testing. He has subsequently converted to normal rhythm. This does not change my assessment or recommendations. Patient is known to have infrequent short-lived uncomplicated recurrences of rapid atrial fibrillation . I believe his surgery may be safely performed as scheduled and can be safely done at the outpatient surgical center in [place]. If atrial fibrillation recurs it may be manage expectantly with rate control therapy (Metoprolol or Cardizem) at the discretion of anesthesiology. documented in this encounter [facility] 11-21-2023 Instructions Lissa Olea MD - 11/21/2023 9:45 AM EST Please call our office at [phone] if you have questions or if you [...] hours (M-F 8a-4:30p) documented in this encounter [facility] 08-08-2023 History of Present illness Narrative [facility] Office Note DATE of [...] subsequently was in the emergency room at [facility] 03/2023. He spontaneously converted back to [...] He is not drinking alcohol or taking awod-exs-jlhxtvb supplements. He drinks an occasional soda and [...] in 3 months. documented in this encounter [facility] 08-08-2023 Instructions Laureen Chapman PA-C - 08/08/2023 1:30 PM EDT -don't eat or drink after midnight and call Laureen in the morning at [phone] at 8 am to let us know if you are back in rhythm -blood test today -echocardiogram documented in this encounter [facility] 03-16-2023 Telephone encounter Note Fadia pt seen today at [facility] ED for AF RVR. Converted spontaneously. Please schedule follow up with myself or Laureen. Thanks Lissa Olea MD [facility] 03/28/23 4:01 PM Per call from [place] at [facility], I faxed last office note and ekg to [phone] [facility] 03-16-2023 Miscellaneous Notes Per call from [place] at [facility], I faxed last office note and ekg to [phone] documented in this encounter [facility] 03-16-2023 Miscellaneous Notes Fadia pt seen today at [facility] ED for AF RVR. Converted spontaneously. Please schedule follow up with myself or Laureen. Thanks Lissa Olea MD [facility] 03/28/23 4:01 PM Per call from [place] at [facility], I faxed last office note and ekg to [phone] documented in this encounter [facility] 02-06-2023 Telephone encounter Note Per Dr Olea, I faxed yesterdays note to [facility] for left total knee surgery 03-19-[address] Radha Ma fax [phone] [facility] 02-06-[address] Olea, I faxed yesterdays note to [facility] for left total knee surgery 03-19-[address] Radha Ma fax [phone] documented in this encounter [facility] 02-05-2023 History of Present illness Narrative [facility] Office Note DATE of [...] of the surgeon. documented in this encounter [facility] 02-05-2023 Instructions Lissa Olea MD - 02/05/2023 3:15 PM EDT Please call our office at [phone] if you have questions or if you [...] hours (M-F 8a-4:30p) documented in this encounter [facility] Evaluation + Plan note No data available for this section [facility] documented in this encounter [facility] note* Diagnosis Paroxysmal atrial fibrillation (HCC)- Primary Atrial fibrillation Nonrheumatic aortic valve stenosis Shortness of breath Essential hypertension Unspecified essential hypertension documented in this encounter [facility] note* Diagnosis Paroxysmal atrial fibrillation (HCC) Atrial fibrillation Nonrheumatic aortic valve stenosis Shortness of breath documented in this encounter [facility] note* Diagnosis Essential hypertension- Primary Unspecified essential hypertension documented in this encounter [facility] note* Diagnosis Essential hypertension- Primary Unspecified essential hypertension documented in this encounter [facility] note* Diagnosis Essential hypertension- Primary Unspecified essential hypertension documented in this encounter [facility] Discharge instructions No data available for this section [facility] Progress note No data available for this section [facility] Summary Purpose Family History No Family History Records FoundNo Family History Records FoundNo Family History Records FoundNo Family History Records FoundNo Family History Records FoundNo Family History Records FoundNo Family History Records Found Advance Directives No Advanced Directives Records FoundDocuments on File Type Date Recorded Patient [employer] Expl anation Advance Directives and Living Will Power of Child And Youth Program Assistant Documents on File Type Date Recorded Patient [employer] Som[employer] Expl anation ACP-Advance Directive ACP-Power of Child And Youth Program Assistant Documents on File Type Date Recorded Patient [employer] Expl anation Advance Directives and Living Will Power of Child And Youth Program Assistant Reason for Referral Status Reason Specialty Diagnoses / Procedures Referre d By Contact Referred To Contact Closed Cardiology Diagnoses Essential hypertension Paroxysmal atrial fibrillation (HCC) Shortness of breath Procedures ECHO Complete 2D W Doppler W Color Laureen Chapman PA-C [address] [place] [address] Specialty Diagnoses / Procedures Referred By Contac t Referred To Contact Cardiology Diagnoses Paroxysmal atrial fibrillation (HCC) Nonrheumatic aortic valve stenosis Shortness of breath Procedures Transthoracic echocardiogram (TTE) complete with contrast, bubble, strain, and 3D PRN MI ECHO TTHRC R-T 2D W/WOM-MODE COMPL SPEC&COLR D MI TTE W OR WO FOL WCON,DOPPLER Laureen Chapman PA-C [address] [place] [address] Referral ID Status Reason Start Date Expiration Date V isits Requested Visits Authorized [id number] Pending Review 08/08/2023 08/07/2024 1 1 Referral ID Status Reason Start Date Expiration Date Visits Re quested Visits Authorized [id number] Closed 08/08/2023 08/07/2024 1 1 Assessments Diagnosis Essential hypertension Unspecified essential hypertension Paroxysmal atrial fibrillation (HCC) Atrial fibrillation Shortness of breath Diagnosis Laceration of right index finger without foreign body without damage to nail, initial encounter Discharge Instructions * Attachments The following attachments cannot be sent through Care Everywhere. * Lacerations: Stitches (Yi) documented in this encounter Additional Source Comments (unrecognized sect ion and content) No Status Records FoundNo Status Records FoundNo Status Records FoundNo Status Records FoundNo Status Records FoundNo Status Records FoundNo Status Records Found INFORMATION SOURCE (unrecogn ized section and content) DATE CREATED AUTHOR AUTHOR'S ORGANIZ ATION 04/05/2018 [facility] DATE CREATED AUTHOR AUTHOR'S ORGANIZ ATION 05/28/2019 [facility] DATE CREATED AUTHOR AUTHOR'S ORGANIZ ATION 10/20/2020 [facility] DATE CREATED AUTHOR AUTHOR'S ORGANIZ ATION 08/31/2022 [facility] DATE CREATED AUTHOR AUTHOR'S ORGANIZ ATION 04/12/2023 [facility] DATE CREATED AUTHOR AUTHOR'S ORGANIZ ATION 12/15/2023 [facility] Reason for Visit (unrecogniz ed section and [...] with contrast, bubble, strain, and 3D PRN MI ECHO TTHRC R-T 2D W/WOM-MODE COMPL SPEC&COLR D MI TTE W OR WO FOL WCON,DOPPLER Laureen Chapman PA-C [address] [place] [address] Referral ID Status Reason Start Date Expiration Date Visits Re quested Visits Authorized [id number] Closed 08/08/2023 08/07/2024 1 1 Reason Comments 3 Month Follow Up Reason Onset Date Comments OTHER 11/21/2023 Reason Onset Date Comments OTHER 12/03/2023 Care Team (unrecognized sect ion and content) Care Team Personnel Name: SNEHAL HERNANDEZ, RADHA Member Role: Primary Care Physician Address: Address: [address] [place] [phone] Care Teams (unrecognized sec tion and content) Business Reporting Developer Relationship Specialty Start Date End Date Radha Brian MD [address] [place], [place] [phone] PCP - General 03/08/19 Business Reporting Developer Relationship Specialty Start Date End Date Radha Brian MD [address] [place], [place] [address] PCP - General 03/08/19 Business Reporting Developer Relationship Specialty Start Date End Date Radha Brian MD [address] [place], [place] [phone] PCP - General 03/08/19 Business Reporting Developer Relationship Specialty Start Date End Date Radha Brian MD [address] [place] [phone] PCP - General 03/08/19 Business Reporting Developer Relationship Specialty Start Date End Date Radha Brian MD [address] [place], [place] [id number] PCP - General 03/08/19 Business Reporting Developer Relationship Specialty Start Date End Date Radha Brian MD [address] [place] [id number] PCP - General 03/08/19 Business Reporting Developer Relationship Specialty Start Date End Date Radha Brian MD [address] [place] [id number] PCP - General 03/08/19 Business Reporting Developer Relationship Specialty Start Date End Date Radha Brian MD [address] [place] [id number] PCP - General 03/08/19 Business Reporting Developer Relationship Specialty Start Date End Date Radha Brian MD [address] [place] [id number] PCP General 03/08/19 FOR RECORDS PERTAINING TO PATIENTS [...] BE BASED ON THE PRIMARY CLINICAL RECORDS. [facility] [employer] [facility]. provides no warranty or guarantee of the accuracy or completeness of information in this document.
== END | disposition home or self-care (01) ==
LOC: LABSPEC 16:02
PROVIDERS: PCP Family Medicine Geriatric Medicine; Referring Provider Orthopaedic Surgery; Visit Provider Orthopaedic Surgery
DX: M17.11 Unilateral primary osteoarthritis, right knee (principal)
CPT/HCPCS: 88305; 88311